=== PATIENT | male | born 1985 | race Caucasian/White ===

== ENCOUNTER 2018-05-23 18:33 | Emergency (ER) | payer MEDICAID, OTHER ==
[2018-05-23] MEDS ORDERED: HYDROCODONE/APAP 7.5/325MG TABLET PO ONE (19:13)
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
== END 2018-05-23 20:41 | disposition home or self-care (01) ==
LOC: ER 18:33
DX: S20.219A Contusion of unspecified front wall of thorax, initial encounter (principal); S40.012A Contusion of left shoulder, initial encounter; S10.93XA Contusion of unspecified part of neck, initial encounter; V49.49XA Driver injured in collision with other motor vehicles in traffic accident, initial encounter; F17.210 Nicotine dependence, cigarettes, uncomplicated
CPT/HCPCS: 71250; 72125; 99283; 99284

== ENCOUNTER 2018-06-12 19:36 | Emergency (ER) | payer OTHER ==
[2018-06-12] MEDS ORDERED: IBUPROFEN 600 MG TABLET PO ONE (19:45)
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
--- NOTE | 2018-06-16 12:51 | RADIOLOGY REPORT ---
EXAM: RIGHT ANKLE HISTORY: STEPPED IN A HOLE WHILE MOWING THE LAWN, TWISTING RIGHT ANKLE. TECHNIQUE: Three views of the right ankle were obtained. Comparison: None. Encounter: Initial. FINDINGS: There is some soft tissue swelling particularly laterally about the right ankle. No definite fracture of the right ankle identified. No dislocation seen. Small chronic appearing bony density adjacent to the dorsal margin of the talus. IMPRESSION: 1. SOFT TISSUE SWELLING PARTICULARLY LATERALLY. 2. NO DEFINITE FRACTURE OF THE RIGHT ANKLE IDENTIFIED. JOB NUMBER: [id number] MTDD
--- NOTE | 2018-06-16 12:54 | RADIOLOGY REPORT ---
EXAM: RIGHT FOOT HISTORY: STEPPED IN A HOLE WHILE MOVING THE LAWN WITH RIGHT FOOT PAIN. TECHNIQUE: Three views of the right foot were obtained. Comparison: No right foot series previously. Encounter: Initial. FINDINGS: There is a small chronic appearing bony density along the dorsal margin of the distal talus seen on the lateral view. No definite acute fracture or dislocation of the right foot identified. No prominent focal soft tissue swelling seen. IMPRESSION: 1. SMALL CHRONIC APPEARING BONY DENSITY ALONG THE DORSAL MARGIN OF THE DISTAL TALUS ON THE LATERAL VIEW. 2. NO DEFINITE FRACTURE OF THE RIGHT FOOT IDENTIFIED. JOB NUMBER: [id number] MTDD
== END 2018-06-12 21:28 | disposition home or self-care (01) ==
LOC: ER 19:36
DX: S93.401A Sprain of unspecified ligament of right ankle, initial encounter (principal); S93.601A Unspecified sprain of right foot, initial encounter; X50.1XXA Overexertion from prolonged static or awkward postures, initial encounter; Y93.H9 Activity, other involving exterior property and land maintenance, building and construction; I10 Essential (primary) hypertension; F17.210 Nicotine dependence, cigarettes, uncomplicated
CPT/HCPCS: 99283

== ENCOUNTER 2019-08-05 18:54 | Emergency (ER) | payer OTHER ==
[2019-08-05] MEDS ORDERED: Diph,Pert(Acell),Tet Vac 0.5 ML SYR IM ONE (19:10)
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
== END 2019-08-05 19:57 | disposition home or self-care (01) ==
LOC: ER 18:54
DX: S61.215A Laceration without foreign body of left ring finger without damage to nail, initial encounter (principal); W26.0XXA Contact with knife, initial encounter; Y92.89 Other specified places as the place of occurrence of the external cause; F17.210 Nicotine dependence, cigarettes, uncomplicated
CPT/HCPCS: 12001; 90715; 96372; 99284